=== PATIENT | female | born 1995 | race African-American/Black ===

== ENCOUNTER 2017-08-24 08:45 | Emergency (ER) | payer OTHER ==
[~2017-08-24] VITALS: Ht 149.9 cm; Wt 79.0 kg
[2017-08-24] MEDS ORDERED: SODIUM CHLORIDE 0.9% 1,000 ML IV ONE (10:45)
[2017-08-24] MEDS ORDERED: KETOROLAC 30MG/ML VIAL IV ONE (10:45)
[2017-08-24 11:34] LABS: CLARITY URINE CLEAR (CLEAR); COLOR URINE YELLOW (YELLOW); KETONES URINE TRACE (NEGATIVE); LEUKOCYTE ESTERASE URINE 1+ (NEGATIVE); NITRITE URINE NEGATIVE (NEGATIVE); OCCULT BLOOD URINE 2+ (NEGATIVE); PH URINE 5.5 (4.5-8.0); PROTEIN URINE NEGATIVE (NEGATIVE); SPECIFIC GRAVITY URINE 1.033 (1.005-1.030); UROBILINOGEN URINE 0.2 E.U./dL (0.2-1.0)
[2017-08-24 11:54] LABS: HCG SCREEN NEGATIVE
[2017-08-24 12:44] VITALS: BP 108/74
== END 2017-08-24 12:25 | disposition home or self-care (01) ==
LOC: ER 09:35
DX: N39.0 Urinary tract infection, site not specified (principal); M25.562 Pain in left knee
CPT/HCPCS: 73562; 81003; 84703; 99285; J7030

== ENCOUNTER 2018-02-03 22:29 | Emergency (ER) | payer OTHER ==
[~2018-02-03] VITALS: Ht 149.9 cm; Wt 75.0 kg
[2018-02-04 00:14] LABS: CLARITY URINE CLOUDY (CLEAR); COLOR URINE YELLOW (YELLOW); KETONES URINE NEGATIVE (NEGATIVE); LEUKOCYTE ESTERASE URINE 2+ (NEGATIVE); NITRITE URINE NEGATIVE (NEGATIVE); OCCULT BLOOD URINE 2+ (NEGATIVE); PROTEIN URINE 2+ (NEGATIVE); SPECIFIC GRAVITY URINE 1.018 (1.005-1.030); UROBILINOGEN URINE 0.2 E.U./dL (0.2-1.0)
[2018-02-04] MEDS ORDERED: IBUPROFEN 600MG TABLET PO ONE (00:15)
[2018-02-04 02:49] VITALS: BP 126/69
== END 2018-02-04 02:50 | disposition home or self-care (01) ==
LOC: ER 22:29
DX: N39.0 Urinary tract infection, site not specified (principal); B37.3 Candidiasis of vulva and vagina; S39.012A Strain of muscle, fascia and tendon of lower back, initial encounter; R03.0 Elevated blood-pressure reading, without diagnosis of hypertension; X58.XXXA Exposure to other specified factors, initial encounter; Y93.89 Activity, other specified; Y92.018 Other place in single-family (private) house as the place of occurrence of the external cause
CPT/HCPCS: 81003; 81025; 87077; 87086; 87186; 87210; 99284

== ENCOUNTER 2018-05-23 17:04 | Emergency (ER) | payer OTHER ==
[~2018-05-23] VITALS: Ht 149.9 cm; Wt 77.0 kg
[2018-05-23] MEDS ORDERED: ACETAMINOPHEN 325MG TABLET PO PRN (23:45)
[2018-05-24 00:28] LABS: BASOPHILS % 0.1 % (0.0-2.0); EOSINOPHILS % 0.1 % (0.0-5.0); HEMATOCRIT. 36.1 % (36.0-48.0); HEMOGLOBIN. 11.8 g/dL (12.0-16.0); LYMPHOCYTES % 29.9 % (20.0-50.0); MEAN CORPUSCULAR HEMOGLOBIN 26.4 pg (28.0-32.0); MEAN CORPUSCULAR VOLUME 80.6 fL (81.0-99.0); MEAN PLATELET VOLUME 7.7 fl (7.4-10.4); MONOCYTES % 11.4 % (2.0-8.0); NEUTROPHILS % 58.5 % (40.0-76.0); PLATELET 269 x1000/uL (130-400); RED BLOOD CELL COUNT 4.48 mill/uL (4.2-5.4); RED CELL DISTRIBUTION WIDTH 14.3 % (11.6-14.6)
[2018-05-24 00:33] LABS: CHLORIDE 104 mEq/L (98-107)
[2018-05-24 00:58] LABS: B-HCG QUANTITATIVE 98648 mIU/mL (<3)
[2018-05-24 04:17] VITALS: BP 110/59
== END 2018-05-24 04:19 | disposition home or self-care (01) ==
LOC: ER 17:04
DX: O26.891 Other specified pregnancy related conditions, first trimester (principal); R10.84 Generalized abdominal pain; Z3A.08 8 weeks gestation of pregnancy
CPT/HCPCS: 36415; 76801; 84702; 99284